=== PATIENT | female | born 1970 | race Caucasian/White ===

== ENCOUNTER → 2016-07-24 | Outpatient (CLI) | payer OTHER, BC ==
[2016-07-24 11:00] LABS: BASO % 0.6 %; BASO ABS # 0.03 K/uL (0-0.2); COMPLETE YES; EOS % 2.1 %; HEMATOCRIT 42.3 % (37-47); IG% 0.2 %; LYMPH % 29.5 %; LYMPH ABS # 1.43 K/uL (1.2-3.4); MEAN CELL VOLUME 86.9 fL (80-100); MEAN CORPUSCULAR HEMOGLOBIN 29.6 pg (25-34); MEAN PLATELET VOLUME 11.9 fL (7.4-10.4); MONO % 7.6 %; PLATELET COUNT 269 K/uL (130-400); RED BLOOD COUNT 4.87 M/uL (4.2-5.4); WHITE BLOOD COUNT 4.84 K/uL (4.8-10.8)
[2016-07-24 11:26] LABS: BLOOD UREA NITROGEN 10 mg/dl (7-18); BUN/CREATININE RATIO 10.9 (10-20); CALCIUM 8.4 mg/dl (8.5-10.1); CARBON DIOXIDE 28 mmol/L (21-32); CHLORIDE 109 mmol/L (98-107); CREATININE 0.95 mg/dl (0.60-1.20); GLUCOSE 92 mg/dl (70-99); POTASSIUM 4.3 mmol/L (3.5-5.1); SODIUM 141 mmol/L (136-145)
[2016-07-24 11:37] LABS: ALB/GLOB RATIO 1.2 (0.9-2); ALKALINE PHOSPHATASE 48 U/L (45-117); ALT/SGPT 19 U/L (12-78); AST/SGOT 8 U/L (15-37)
[2016-07-24 13:32] LABS: LYME DISEASE AB IGG NEG (NEG)
[2016-07-24 13:33] LABS: LYME DISEASE AB IGM NEG (NEG)
== END | disposition home or self-care (01) ==
LOC: C.LABBC 08:01
PROVIDERS: ATTEND Psychiatry & Neurology Neurology
DX: R51 Headache (principal); F07.81 Postconcussional syndrome; R53.83 Other fatigue; R41.3 Other amnesia; R45.4 Irritability and anger

== ENCOUNTER → 2016-08-11 | Outpatient (CLI) | payer OTHER, BC ==
--- NOTE | 2016-08-11 17:35 | EEG Procedure Note ---
EEG Procedure Note Date of Service Aug 11, 2016. Start / End Times Start Time: 10:19 AM End Time: 10:40 AM Referring Physician Abdirahman Mendez History This is a 46-year-old female with postconcussion syndrome, memory loss, headaches, and fatigue. EEG for further evaluation of possible seizure etiology. No home medications reported Description This is a 21 electrode EEG with a single channel dedicated to limited EKG. The electrodes were placed in accordance with the International 10-20 system. At the start of the recording the patient was in an awake state. Background was well organized and composed of symmetric mixed alpha and beta frequencies. There was a symmetric well-formed moderate amplitude 10 Hz posterior dominant rhythm that was reactive to eye opening and closure. Hyperventilation was not done. Intermittent photic stimulation at various frequencies produced no abnormalities. There was no state changes or sleep transients. Interpretation This is a normal awake only routine EEG. There was no electrographic seizures or epileptiform discharges. Clinical Correlation A normal EEG does not rule out epilepsy if there is a strong clinical suspicion.
== END | disposition home or self-care (01) ==
LOC: C.NEUR 10:07
PROVIDERS: ATTEND Psychiatry & Neurology Neurology
DX: R53.82 Chronic fatigue, unspecified (principal); R51 Headache; R45.4 Irritability and anger; R41.3 Other amnesia; F07.81 Postconcussional syndrome

== ENCOUNTER → 2016-11-18 | Outpatient (CLI) | payer OTHER, BC | END | disposition home or self-care (01) | LOC: C.LABBC 12:15 | PROVIDERS: ATTEND Psychiatry & Neurology Neurology | DX: E55.9 Vitamin D deficiency, unspecified (principal) ==